=== PATIENT | male | born 1975 | race Two or more races ===

== ENCOUNTER 2025-08-07 21:24 | Inpatient (IN) | payer OTHER ==
[~2025-08-07] VITALS: Ht 175.3 cm; Wt 101.9 kg
[2025-08-07] MEDS ORDERED: hydrALAZINE HCL 20 MG/ML VL IV ONE (22:00)
[2025-08-07] MEDS: SODIUM CHLORIDE 0.9% 2,000 ML IV ONE (22:06)
[2025-08-07 22:11] LABS: Hematocrit 48.8 % (41.0-53.0); Hemoglobin 16.3 g/dL (13.5-17.5); Mean Corpuscular Hemoglobin 28.2 pg (28.0-32.0); Mean Corpuscular Volume 84.3 fL (80.0-100.0); Nucleated Red Blood Cells % 0.1 %
[2025-08-07 22:20] LABS: Potassium 4.4 mmol/L (3.5-5.1)
[2025-08-07 22:21] LABS: Anion Gap 13 (5-15); Calcium 9.9 mg/dL (8.7-10.4); Carbon Dioxide 23 mmol/L (20-31)
[2025-08-07 22:23] LABS: Chloride 95 mmol/L (98-107); Sodium 131 mmol/L (136-145)
[2025-08-07 22:26] LABS: BUN/Creatinine Ratio 9.8 (10.0-20.0); Blood Urea Nitrogen 18 mg/dL (9-23)
--- NOTE | 2025-08-07 22:30 | ED.PDOC ---
History of Present Illness HPI Comments 50-year-old male presents with chief complaint of hyperglycemia. Significant history for diabetes mellitus - on metformin QD. Patient reports checking his blood glucose levels today due to sudden worsening of excessive thirst and frequent urination symptoms he has had since last weekend onset. He does not typically measure his glucose at home, however today it was critically navjot on his monitor so he came to the ED for further evaluation. He is compliant with his metformin and denies any recent changes to his medication, diet, or lifestyle. Patient denies any chest pain, shortness of breath, nausea, vomiting, or further acute symptoms. Chief Complaint: Hyperglycemia Time Seen by MD: 21:45 Reviewed Notes: Nurses Notes, Medications, Allergies Allergies: Coded Allergies: NO KNOWN ALLERGIES (Unverified , 08/07/25) Information Source: Patient Mode of Arrival: Ambulatory Past Medical History PAST MEDICAL HISTORY: DM (On metformin) Surgical History: Denies all surgeries Family History Family History: Unknown Social History Smoker: Non-Smoker Alcohol: Denies ETOH Use Drugs: Denies Drug Use Lives In: Home All Other Systems: Reviewed and Negative (Comprehensive review of systems are negative unless otherwise stated in HPI) Physical Exam General Appearance: No Apparent Distress, Obese HEENT: Normal ENT Inspection, Pharynx Normal, TMs Normal Neck: Full Range of Motion, Non-Tender, Normal, Normal Inspection Respiratory: Chest Non-Tender, Lungs Clear, No Accessory Muscle Use, No Respiratory Distress, Normal Breath Sounds Cardiovascular: No Edema, No JVD, No Murmur, No Gallop, Normal Peripheral Pulses, Regular Rate/Rhythm Breast Exam: Deferred Gastrointestinal: No Organomegaly, Non Tender, No Pulsatile Mass, Normal Bowel Sounds, Soft Genitalia: Deferred Pelvic: Deferred Rectal: Deferred Extremities: No calf tenderness, Normal capillary refill, Normal inspection, Normal range of motion, Non-tender, No pedal edema Musculoskeletal : Apperance: Normal Neurologic: Alert, locker room clerk II-XII nml as Tested, No Motor Deficits, Normal Affect, Normal Mood, No Sensory Deficits Cerebellar Function: Normal Reflexes: Normal Skin: Dry, Normal Color, Warm Lymphatic: No Adenopathy Was a procedure done? Was a procedure done?: No Differential Dx Considerations may include: Hyperglycemia, DKA, inappropriate medication dosage, electrolyte abnormality, dehydration, renal failure, among others X-Ray, Labs, Meds, VS Vital Signs Date Time Temp Pulse Resp B/P (MAP) Pulse Ox O2 Delivery O2 Flow Rate FiO2 08/08/25 02:00 76 18 117/79 (92) 08/08/25 01:00 79 21 122/87 (99) 08/08/25 00:00 96 17 124/84 (97) 94 08/07/25 22:34 Room Air* 0 21 08/07/25 22:00 98.8 99 16 137/86 (103) 94 98.8 08/07/25 21:34 98.2 118 20 148/105 95 98.2 Lab Test 08/08/25 02:15 08/08/25 00:04 08/07/25 22:18 08/07/25 22:09 Range/Units POC Glucose 388 H 510 *H > 600 *H 70-106 mg/dl Urine Color Colorless Yellow Urine Clarity Clear Clear Urine pH 5.0 5.0-9.0 Urine Specific [place] 1.027 1.001-1.035 Urine Protein Negative Negative Urine Ketones Negative Negative Urine Blood Negative Negative /uL Urine Nitrite Negative Negative Urine Bilirubin Negative Negative Urine Urobilinogen Normal Negative mg/dL Urine Leukocyte Esterase Negative Negative /uL Urine RBC <1 0 - 3 /hpf Urine Microscopic WBC 0-3 /HPF Urine Squamous Epithelial Cells None seen <5 /hpf Urine Bacteria None seen None Seen /hpf Urine Glucose 4+ H Normal mg/dL Test 08/07/25 22:01 08/07/25 21:59 Range/Units Blood Gas Specimen Type Venous Blood Gas Sample Site Vbg - n/a Blood Gas Patient Temperature 37.0 Arterial Blood Date Drawn Miguel A Test N/a Venous Blood pH 7.370 7.320-7.430 Venous Blood pCO2 at Patient Temp 35.1 L 38.0-54.0 mmHg Venous Blood pO2 at Patient Temp 62.5 H 23.0-48.0 mmHg Venous Blood HCO3 19.8 L 22.0-29.0 mmol/L Venous Blood Base Excess -4.6 L -2.0-3.0 mmol/L Blood Gas Modality Room air FiO2 % 21.0 White Blood Count 6.0 4.4-10.8 10^3/uL Red Blood Count 5.79 4.5-5.90 10^6/uL Hemoglobin 16.3 13.5-17.5 g/dL Hematocrit 48.8 41.0-53.0 % Mean Corpuscular Volume 84.3 80.0-100.0 fL Mean Corpuscular Hemoglobin 28.2 28.0-32.0 pg Mean Corpuscular Hemoglobin Concent 33.4 32.0-36.0 g/dL Red Cell Distribution Width 13.1 11.8-14.3 % Platelet Count 222 140-450 10^3/uL Mean Platelet Volume 10.7 6.9-10.8 fL Neutrophils (%) (Auto) 69.6 37.0-80.0 % Lymphocytes (%) (Auto) 22.9 10.0-50.0 % Monocytes (%) (Auto) 5.7 0.0-12.0 % Eosinophils (%) (Auto) 0.9 0.0-7.0 % Basophils (%) (Auto) 0.9 0.0-2.0 % Neutrophils # (Auto) 4.2 1.6-8.6 10 ^3/uL Lymphocytes # (Auto) 1.4 0.4-5.4 10 ^3/uL Monocytes # (Auto) 0.3 0-1.3 10 ^3/uL Eosinophils # (Auto) 0.1 0-0.8 10 ^3/uL Basophils # (Auto) 0.1 0-0.2 10 ^3/uL Nucleated Red Blood Cells 0.1 % Sodium Level 131 L 136-145 mmol/L Potassium Level 4.4 3.5-5.1 mmol/L Chloride Level 95 L 98-107 mmol/L Carbon Dioxide Level 23 20-31 mmol/L Anion Gap 13 5-15 Blood Urea Nitrogen 18 9-23 mg/dL Creatinine 1.84 H 0.700-1.30 mg/dL Glomerular Filtration Rate Calc 45 >90 mL/min BUN/Creatinine Ratio 9.8 L 10.0-20.0 Serum Glucose 825 *H 74-106 mg/dL Calcium Level 9.9 8.7-10.4 mg/dL Current Medications Medications (Trade) Dose Ordered Sig/Refugio Route Start Time Stop Time Status Last Admin Sodium Chloride 2,000 ml @ 1,000 mls/hr Q2H ONCE IV 08/07/25 22:00 08/07/25 23:59 DC 08/07/25 22:06 Insulin Human Regular (InsuLIN R) 5 units ONCE ONCE IV 08/07/25 22:45 08/07/25 22:46 DC 08/07/25 22:44 Insulin Human Regular (InsuLIN R) 5 units ONCE ONCE IV 08/08/25 00:15 08/08/25 00:16 DC 08/08/25 00:11 X-Ray, Labs, Meds, VS Comment Patient presents with increased thirst and elevated glucose at home. Vital signs stable besides mild tachycardia on exam otherwise unremarkable. Lab work (CBC, BMP) to evaluate for evidence of severe anemia, electrolyte abnormality including hypokalemia, hyperkalemia, hypernatremia, hyponatremia, hyperglycemia, hypoglycemia, etc. VBG to evaluate for DKA Urinalysis to evaluate for ketones, infection IV fluids IV insulin as needed Re-evaluate Social determinant surveillance affecting care: Social determinants of health that will affect the patient's care: Poor health literacy (additional time provided an explanation) Poor access to outpatient care/followup (provided outpatient resources) Time of 1ST Reevaluation: 22:30 Reevaluation 1ST: Unchanged Patient Education/Counseling: Diagnosis, Treatment Family Education/Counseling: No Family Present SEPSIS Sepsis Screen Date sepsis recognized/suspect: Aug 07, 2025 Time Sepsis recognized/suspect: 2147 Recent Procedure: No On Antibiotic Therapy: No Respiratory Rate >20: No Heart Rate >90: No Temp<36 C (96.8 F) or >38.3 C: No SBP <90 or MAP <65 mmHG: No New Acute Mental Status Change: No Is the patient on CPAP, BIPAP,: No Physician Orders Venous Blood Gas (08/07/25 21:53) Vital Signs Date Time Temp Pulse Resp B/P (MAP) Pulse Ox O2 Delivery O2 Flow Rate FiO2 08/08/25 02:00 76 18 117/79 (92) 08/08/25 01:00 79 21 122/87 (99) 08/08/25 00:00 96 17 124/84 (97) 94 08/07/25 22:34 Room Air* 0 21 08/07/25 22:00 98.8 99 16 137/86 (103) 94 98.8 08/07/25 21:34 98.2 118 20 148/105 95 98.2 Laboratory Tests Test 08/07/25 21:59 White Blood Count 6.0 10^3/uL (4.4-10.8) Medications Medications Dose Ordered Sig/Refugio Route Start Time Stop Time Status Last Admin Dose Admin Insulin Human Regular 5 units ONCE ONCE IV 08/07/25 22:45 08/07/25 22:46 DC 08/07/25 22:44 Insulin Human Regular 5 units ONCE ONCE IV 08/08/25 00:15 08/08/25 00:16 DC 08/08/25 00:11 Sodium Chloride 2,000 ml @ 1,000 mls/hr Q2H ONCE IV 08/07/25 22:00 08/07/25 23:59 DC 08/07/25 22:06 Departure 1 Departure Time of Disposition: 03:34 (On reassessment, patient's symptoms slowly improved after IV fluids and IV insulin. Patient's glucose remains elevated despite 2 Hounsfield units. No evidence of DKA. We will admit for poorly-controlled diabetes as patient likely needs to start insulin.) Impression: Primary Impression: Uncontrolled diabetes mellitus Qualified Codes: E11.65 - Type 2 diabetes mellitus with hyperglycemia Additional Impressions: Acute hyperglycemia Polydipsia Disposition: ADMITTED INPATIENT Condition: Guarded Critical Care Note Critical Care Time?: Yes (35 min-critical care time only) Critical care comment: uncontrolled diabetes Stability Stability form required: No Heart Score Heart Score: Heart Score Response (Comments) Value History N/A 0 EKG N/A 0 Age N/A 0 Risk Factors N/A 0 Troponin N/A 0 Total 0 I personally scribed for ARNOL GAMING MD ([email or web address]) on 08/07/25 at 22:30. Electronically submitted by Wilman Ramos ([email or web address]). ARNOL GAMING MD Aug 07, 2025 22:30
[2025-08-07 22:38] LABS: Glucose 825 mg/dL (74-106)
[2025-08-07 22:43] LABS: Urine Protein, UAD Negative (Negative)
[2025-08-07] MEDS: InsuLIN REG 1unit/0.01ml Soln (100units/ml) IV ONE (22:44)
[2025-08-08] MEDS: InsuLIN REG 1unit/0.01ml Soln (100units/ml) IV ONE (00:11)
[2025-08-08] MEDS ORDERED: DEXTROSE (50%) 50ML SYRG IV PRN (03:15)
[2025-08-08] MEDS: ACCU-CHEK COMFORT CURVE STRIP VI SCH (04:05)
[2025-08-08] MEDS: InsuLIN REG 1unit/0.01ml Soln (100units/ml) SC SCH (04:08)
--- NOTE | 2025-08-08 05:04 | DVHHP2 ---
History of Present Illness Reason for Visit: Hyperglycemia History of Present Illness 50-year-old male with a history of diabetes mellitus presents with hyperglycemia. Patient reports a one day history of having elevated blood sugar. He states that radiates has been higher than 500. Reports excessive thirst and frequent urination. Reports being compliant with his metformin. No other acute complaints. Past Medical History Diabetes mellitus and hypertension Past Surgical History Denies Family History Noncontributory Smoke: No ALCOHOL: none Drugs: None Lives: with Family Review of Systems Review of Systems Review of systems are currently negative otherwise addressed in HPI. Allergies: Coded Allergies: NO KNOWN ALLERGIES (Unverified , 08/07/25) Medications Current Medications Medications Dose Ordered Sig/Refugio Route Start Time Stop Time Status Last Admin Dose Admin Diagnostic Test (Pha) 1 strip IQ4HR 08/08/25 04:00 08/08/25 04:05 1 STRIP Insulin Human Regular IQ4HR SC 08/08/25 04:00 08/08/25 04:08 10 UNITS Dextrose 50 ml UD PRN IV 08/08/25 03:15 Lisinopril 10 mg DAILY PO 08/08/25 10:00 Exam Vital Signs Vital Signs Date Time Temp Pulse Resp B/P (MAP) Pulse Ox O2 Delivery O2 Flow Rate FiO2 08/08/25 04:00 72 20 109/73 (85) 94 08/07/25 22:34 Room Air* 0 21 08/07/25 22:00 98.8 98.8 Exam Gen: 50-year-old male in mild distress Skin: Warm, dry, normal color and texture, no rash. HEENT: Normocephalic atraumatic, mucous membranes moist and pink. Neck: Cervical and supraclavicular nodes normal without enlargement, trachea is midline, thyroid gland is normal without masses. Pulmonary: Clear to auscultation and percussion bilaterally. Cardiac: Regular rate and rhythm. No murmur Abdomen: Soft, nontender, nondistended, bowel sounds present all 4 quadrants, no guarding, no rigidity, no organomegaly. Extremities: No cyanosis, clubbing, no edema Neuro: Cranial nerves II through XII grossly intact, normal affect and speech, no focal motor deficits. Labs/Xrays Labs Test 08/08/25 04:04 08/07/25 22:18 08/07/25 22:01 08/07/25 21:59 Range/Units POC Glucose 358 H 70-106 mg/dl Urine Color Colorless Yellow Urine Clarity Clear Clear Urine pH 5.0 5.0-9.0 Urine Specific [place] 1.027 1.001-1.035 Urine Protein Negative Negative Urine Ketones Negative Negative Urine Blood Negative Negative /uL Urine Nitrite Negative Negative Urine Bilirubin Negative Negative Urine Urobilinogen Normal Negative mg/dL Urine Leukocyte Esterase Negative Negative /uL Urine RBC <1 0 - 3 /hpf Urine Microscopic WBC 0-3 /HPF Urine Squamous Epithelial Cells None seen <5 /hpf Urine Bacteria None seen None Seen /hpf Urine Glucose 4+ H Normal mg/dL Blood Gas Specimen Type Venous Blood Gas Sample Site Vbg - n/a Blood Gas Patient Temperature 37.0 Arterial Blood Date Drawn Miguel A Test N/a Venous Blood pH 7.370 7.320-7.430 Venous Blood pCO2 at Patient Temp 35.1 L 38.0-54.0 mmHg Venous Blood pO2 at Patient Temp 62.5 H 23.0-48.0 mmHg Venous Blood HCO3 19.8 L 22.0-29.0 mmol/L Venous Blood Base Excess -4.6 L -2.0-3.0 mmol/L Blood Gas Modality Room air FiO2 % 21.0 White Blood Count 6.0 4.4-10.8 10^3/uL Red Blood Count 5.79 4.5-5.90 10^6/uL Hemoglobin 16.3 13.5-17.5 g/dL Hematocrit 48.8 41.0-53.0 % Mean Corpuscular Volume 84.3 80.0-100.0 fL Mean Corpuscular Hemoglobin 28.2 28.0-32.0 pg Mean Corpuscular Hemoglobin Concent 33.4 32.0-36.0 g/dL Red Cell Distribution Width 13.1 11.8-14.3 % Platelet Count 222 140-450 10^3/uL Mean Platelet Volume 10.7 6.9-10.8 fL Neutrophils (%) (Auto) 69.6 37.0-80.0 % Lymphocytes (%) (Auto) 22.9 10.0-50.0 % Monocytes (%) (Auto) 5.7 0.0-12.0 % Eosinophils (%) (Auto) 0.9 0.0-7.0 % Basophils (%) (Auto) 0.9 0.0-2.0 % Neutrophils # (Auto) 4.2 1.6-8.6 10 ^3/uL Lymphocytes # (Auto) 1.4 0.4-5.4 10 ^3/uL Monocytes # (Auto) 0.3 0-1.3 10 ^3/uL Eosinophils # (Auto) 0.1 0-0.8 10 ^3/uL Basophils # (Auto) 0.1 0-0.2 10 ^3/uL Nucleated Red Blood Cells 0.1 % Sodium Level 131 L 136-145 mmol/L Potassium Level 4.4 3.5-5.1 mmol/L Chloride Level 95 L 98-107 mmol/L Carbon Dioxide Level 23 20-31 mmol/L Anion Gap 13 5-15 Blood Urea Nitrogen 18 9-23 mg/dL Creatinine 1.84 H 0.700-1.30 mg/dL Glomerular Filtration Rate Calc 45 >90 mL/min BUN/Creatinine Ratio 9.8 L 10.0-20.0 Serum Glucose 825 *H 74-106 mg/dL Calcium Level 9.9 8.7-10.4 mg/dL SEPSIS Sepsis Screen Date sepsis recognized/suspect: Aug 07, 2025 Time Sepsis recognized/suspect: 2219 Recent Procedure: No On Antibiotic Therapy: No Respiratory Rate >20: No Heart Rate >90: Yes Temp<36 C (96.8 F) or >38.3 C: No SBP <90 or MAP <65 mmHG: No New Acute Mental Status Change: No Is the patient on CPAP, BIPAP,: No Physician Orders Venous Blood Gas (08/07/25 21:53) Admit (08/08/25 03:09) Basic Metabolic Panel (08/08/25 06:00) Consistent Carb(Ccho)Diabetes (08/08/25 Breakfast) Glucose Blood (Accu-Chek Comfort Curve T (08/08/25 04:00) Insulin R (Human) (Insulin R) (08/08/25 04:00) Dextrose 50% Syringe (08/08/25 03:15) Lisinopril Tablet (Zestril Tablet) (08/08/25 10:00) Hemoglobin A1c (08/08/25 04:57) Vital Signs Date Time Temp Pulse Resp B/P (MAP) Pulse Ox O2 Delivery O2 Flow Rate FiO2 08/08/25 04:00 72 20 109/73 (85) 94 08/08/25 02:00 76 18 117/79 (92) 08/08/25 01:00 79 21 122/87 (99) 08/08/25 00:00 96 17 124/84 (97) 94 08/07/25 22:34 Room Air* 0 21 08/07/25 22:00 98.8 99 16 137/86 (103) 94 98.8 08/07/25 21:34 98.2 118 20 148/105 95 98.2 Laboratory Tests Test 08/07/25 21:59 White Blood Count 6.0 10^3/uL (4.4-10.8) Medications Medications Dose Ordered Sig/Refugio Route Start Time Stop Time Status Last Admin Dose Admin Diagnostic Test (Pha) 1 strip IQ4HR 08/08/25 04:00 08/08/25 04:05 1 STRIP Insulin Human Regular IQ4HR SC 08/08/25 04:00 08/08/25 04:08 10 UNITS Insulin Human Regular 5 units ONCE ONCE IV 08/07/25 22:45 08/07/25 22:46 DC 08/07/25 22:44 5 UNITS Insulin Human Regular 5 units ONCE ONCE IV 08/08/25 00:15 08/08/25 00:16 DC 08/08/25 00:11 5 UNITS Sodium Chloride 2,000 ml @ 1,000 mls/hr Q2H ONCE IV 08/07/25 22:00 08/07/25 23:59 DC 08/07/25 22:06 1,000 MLS/HR Assessment/Plan Assessment/Plan Assessment Uncontrolled diabetes mellitus Hypertension Plan Admit the patient to [facility] to the hospitalist Q.4 hour Accu-Cheks Resume home medications Continue treatment per orders. Plan discussed with: Patient My Orders Orders - BARTOLOME LERNER Procedure Category Date Status Time Admit ADMIT 08/08/25 Transmitted 03:09 Basic Metabolic Panel LAB 08/08/25 Logged 06:00 Consistent DIET 08/08/25 Transmitted Carb(Ccho)Diabetes Breakfast Glucose Blood PHA 08/08/25 In Process (Accu-Chek Comfort 04:00 Insulin R (Human) PHA 08/08/25 In Process (Insulin R) 04:00 Dextrose 50% Syringe PHA 08/08/25 In Process 03:15 Lisinopril Tablet PHA 08/08/25 In Process (Zestril Tablet) 10:00 Hemoglobin A1c LAB 08/08/25 Transmitted 04:57 Date of Service: Aug 08, 2025 Billing Provider: BARTOLOME LERNER Common Visit Codes: [id number] INP/OBS CARE (MOD) BARTOLOME LERNER Aug 08, 2025 05:04
[2025-08-08 07:26] LABS: Chloride 105 mmol/L (98-107); Potassium 4.0 mmol/L (3.5-5.1); Sodium 144 mmol/L (136-145)
[2025-08-08 07:27] LABS: Anion Gap 11 (5-15); Calcium 9.4 mg/dL (8.7-10.4); Carbon Dioxide 28 mmol/L (20-31)
[2025-08-08 07:32] LABS: BUN/Creatinine Ratio 11.0 (10.0-20.0); Blood Urea Nitrogen 14 mg/dL (9-23)
[2025-08-08 07:33] LABS: Glucose 309 mg/dL (74-106)
[2025-08-08 08:00] VITALS: PULSE 87; RESP 16; O2SAT 95
[2025-08-08] MEDS: LISINOPRIL 5 MG TAB PO SCH (10:19)
[2025-08-08] MEDS ORDERED: SEMA2INJ3 (16:16)
[2025-08-08] MEDS ORDERED: METF-372 PO (16:16)
[2025-08-08 17:00] VITALS: BP 152/83; PULSE 82; RESP 17; TEMP 98.5; O2SAT 96
[2025-08-08 20:00] VITALS: PULSE 90; RESP 20; O2SAT 95
[2025-08-08 21:00] VITALS: BP 135/89; PULSE 90; RESP 20; TEMP 98.1; O2SAT 95
[2025-08-09 01:00] VITALS: BP 123/87; PULSE 90; RESP 20; TEMP 97.7; O2SAT 98
[2025-08-09 05:00] VITALS: BP 139/86; PULSE 83; RESP 18; TEMP 98; O2SAT 96
[2025-08-09 08:00] VITALS: PULSE 81; RESP 18
[2025-08-09 08:59] VITALS: BP 122/85; PULSE 79; RESP 18; TEMP 98.4; O2SAT 96
[2025-08-09] MEDS ORDERED: LISI-275 PO (11:34)
[2025-08-09 12:06] LABS: Chloride 101 mmol/L (98-107); Potassium 4.0 mmol/L (3.5-5.1); Sodium 141 mmol/L (136-145)
[2025-08-09 12:07] LABS: Anion Gap 11 (5-15); Carbon Dioxide 29 mmol/L (20-31)
[2025-08-09 12:08] LABS: Calcium 9.7 mg/dL (8.7-10.4)
[2025-08-09 12:12] LABS: BUN/Creatinine Ratio 15.3 (10.0-20.0); Blood Urea Nitrogen 19 mg/dL (9-23)
[2025-08-09 12:13] LABS: Glucose 287 mg/dL (74-106)
--- NOTE | 2025-08-09 12:31 | DVHDS2 ---
Discharge Summary Date of Admission Aug 08, 2025 at 03:09 Date of Discharge: Aug 09, 2025 Labs/Diagnostic Data: Laboratory Results Test 08/09/25 11:34 08/09/25 11:24 08/08/25 07:05 08/07/25 22:18 POC Glucose 280 mg/dl (70-106) Sodium Level 141 mmol/L (136-145) Potassium Level 4.0 mmol/L (3.5-5.1) Chloride Level 101 mmol/L (98-107) Carbon Dioxide Level 29 mmol/L (20-31) Anion Gap 11 (5-15) Blood Urea Nitrogen 19 mg/dL (9-23) Creatinine 1.24 mg/dL (0.700-1.30) Glomerular Filtration Rate Calc 72 mL/min (>90) BUN/Creatinine Ratio 15.3 (10.0-20.0) Serum Glucose 287 mg/dL (74-106) Calcium Level 9.7 mg/dL (8.7-10.4) Hemoglobin A1c 9.7 % A1C (<5.7) Urine Color Colorless (Yellow) Urine Clarity Clear (Clear) Urine pH 5.0 (5.0-9.0) Urine Specific [place] 1.027 (1.001-1.035) Urine Protein Negative (Negative) Urine Ketones Negative (Negative) Urine Blood Negative /uL (Negative) Urine Nitrite Negative (Negative) Urine Bilirubin Negative (Negative) Urine Urobilinogen Normal mg/dL (Negative) Urine Leukocyte Esterase Negative /uL (Negative) Urine RBC <1 /hpf (0 - 3) Urine Microscopic WBC /HPF (0-3) Urine Squamous Epithelial Cells None seen /hpf (<5) Urine Bacteria None seen /hpf (None Seen) Urine Glucose 4+ mg/dL (Normal) Test 08/07/25 22:01 08/07/25 21:59 Blood Gas Specimen Type Venous Blood Gas Sample Site Vbg - n/a Blood Gas Patient Temperature 37.0 Arterial Blood Date Drawn Miguel A Test N/a Venous Blood pH 7.370 (7.320-7.430) Venous Blood pCO2 at Patient Temp 35.1 mmHg (38.0-54.0) Venous Blood pO2 at Patient Temp 62.5 mmHg (23.0-48.0) Venous Blood HCO3 19.8 mmol/L (22.0-29.0) Venous Blood Base Excess -4.6 mmol/L (-2.0-3.0) Blood Gas Modality Room air FiO2 % 21.0 White Blood Count 6.0 10^3/uL (4.4-10.8) Red Blood Count 5.79 10^6/uL (4.5-5.90) Hemoglobin 16.3 g/dL (13.5-17.5) Hematocrit 48.8 % (41.0-53.0) Mean Corpuscular Volume 84.3 fL (80.0-100.0) Mean Corpuscular Hemoglobin 28.2 pg (28.0-32.0) Mean Corpuscular Hemoglobin Concent 33.4 g/dL (32.0-36.0) Red Cell Distribution Width 13.1 % (11.8-14.3) Platelet Count 222 10^3/uL (140-450) Mean Platelet Volume 10.7 fL (6.9-10.8) Neutrophils (%) (Auto) 69.6 % (37.0-80.0) Lymphocytes (%) (Auto) 22.9 % (10.0-50.0) Monocytes (%) (Auto) 5.7 % (0.0-12.0) Eosinophils (%) (Auto) 0.9 % (0.0-7.0) Basophils (%) (Auto) 0.9 % (0.0-2.0) Neutrophils # (Auto) 4.2 10 ^3/uL (1.6-8.6) Lymphocytes # (Auto) 1.4 10 ^3/uL (0.4-5.4) Monocytes # (Auto) 0.3 10 ^3/uL (0-1.3) Eosinophils # (Auto) 0.1 10 ^3/uL (0-0.8) Basophils # (Auto) 0.1 10 ^3/uL (0-0.2) Nucleated Red Blood Cells 0.1 % Other Laboratory Tests 08/09/25 11:24 08/07/25 21:59 Brief Hx & Hospital Course: 50-year-old male with a history of diabetes mellitus presents with hyperglycemia. Patient reports a one day history of having elevated blood sugar. He states that radiates has been higher than 500. Reports excessive thirst and frequent urination. Reports being compliant with his metformin. No other acute complaints. During hospital stay bp controlled and also glycemic controlled Condition at Discharge: Good Final Diagnosis/Problems List uncontrolled diabetes uncontrolled hypertension Discharge Disposition: Home Discharge Instruct/Medications Diet: Consistent carbohydrate Activity: No Restrictions, As Tolerated Follow Up/Referral: pcp in 7 days Medications: enalapril, metformin Scheduled Lisinopril (Lisinopril), 10 MG PO DAILY Metformin Hydrochloride (Metformin Hcl), 1 TAB PO BID, (Reported) Miscellaneous Medications Semaglutide (Ozempic), (Reported) Discharge Statement: "Patient was advised to return to the ER or call 911 if any headaches, dizziness, shortness of breath, chest pain, abdominal pain, bleeding, fevers, or worsening of medical condition. Patient was counseled about treatment plan, medications, possible side effects, patientverbalized understanding. All questions were answered to the best of my ability. This discharge took greater then 30 minutes in planning, reviewing documentation, counseling the patient, and discussing with other team members." ASSESSMENT ASSESSMENT Assessment uncontrolled diabetes uncontrolled hypertension Date of Service: Aug 09, 2025 Billing Provider: EDISON URBINA MD Common Visit Codes: [id number] DISCH DAY >30min EDISON URBINA MD Aug 09, 2025 12:31
[2025-08-09 12:38] VITALS: BP_SYST 121; BP_SYST 124; BP_DIAS 69; BP_DIAS 98; PULSE 103; PULSE 78; RESP 18; RESP 20; TEMP 98; TEMP 98.2; O2SAT 98
== END 2025-08-09 14:04 | disposition home or self-care (01) | DRG 639 ==
LOC: ER 21:24 → OVERFLOW 08-08 03:09
PROVIDERS: ADMIT Hospitalist; ATTEND Hospitalist
DX: E11.65 Type 2 diabetes mellitus with hyperglycemia (principal); I10 Essential (primary) hypertension; Z79.84 Long term (current) use of oral hypoglycemic drugs
CPT/HCPCS: 36415; 36600; 80048; 81001; 82805; 82962; 83036; 85025; 96361; 96374; 96375; 99291; G0378; J1815